=== PATIENT | male | born 2000 | race African-American/Black ===

== ENCOUNTER 2018-12-04 17:49 | Emergency (ER) | payer SELFPAY ==
[~2018-12-04] VITALS: Ht 180.3 cm; Wt 78.8 kg
[~2018-12-04 17:49] MED LIST: ONDA4TAB14 PO
[2018-12-04 18:03] VITALS: Ht 180.3 cm; Wt 78.8 kg
[2018-12-04] MEDS ORDERED: SOD CHLORIDE 0.9% 1,000 ML IV STA (19:18)
[2018-12-04] MEDS ORDERED: ONDANSETRON 4 MG INJ IV STA (19:18)
[2018-12-04 20:50] VITALS: BP 111/56; PULSE 61; RESP 18
== END 2018-12-04 20:52 | disposition home or self-care (01) ==
LOC: FTE 17:49
DX: F10.120 Alcohol abuse with intoxication, uncomplicated (principal)
CPT/HCPCS: 82962; J2405; J7030; 96374